=== PATIENT | male | born 2000 | race African-American/Black ===

== ENCOUNTER 2018-05-20 15:09 | Emergency (ER) | payer OTHER, SELFPAY ==
[2018-05-20] MEDS ORDERED: Dicyclomine 20 MG TAB ONE (15:32)
[2018-05-20] MEDS ORDERED: Ondansetron PF 4 MG/2 ML Vial ONE (15:33)
[2018-05-20 15:50] LABS: #Basophils 0.1 thou/uL (0.0-0.2); #Eosinphils 0.1 thou/uL (0.0-0.7); #Lymphocytes 1.5 thou/uL (1.20-3.40); #Monocytes 0.7 thou/uL (0.11-0.59); #Neutrophils 5.1 thou/uL (1.40-6.50); %Basophils 0.9 % (0.0-1.0); %Eosinophils 1.7 % (0.0-10.0); %Monocytes 9.3 % (0.0-4.0); %Neutrophils 68.1 % (31.0-61.0); Hemoglobin 14.7 g/dL (14.0-18.0); Mean Corpuscular HGB CONC 35.1 g/dL (32.0-36.0); Mean Corpuscular Hemoglobin 30.6 pg (25.0-35.0); Mean Corpuscular Volume 87.2 fL (78.0-98.0); Platelet Count 271 thou/uL (130-400); RBC Distribution Width 11.6 % (11.5-14.5); Red Blood Cell (RBC) Count 4.82 mill/uL (4.00-5.20); White Blood Cell (WBC) Count 7.6 thou/uL (4.8-10.8)
[2018-05-20 16:06] LABS: ALT (SGPT) 11 U/L (8-55); AST (SGOT) 15 U/L (5-34); Alkaline Phosphatase 68 U/L (Less than 750); Anion Gap 12 mmol/L (10-20); BUN (Urea Nitrogen) 11 mg/dL (8.9-20.6); Bilirubin, Total 0.6 mg/dL (0.2-1.2); Calc. Creatinine Clearance 0 mL/min (70-130); Calcium 9.3 mg/dL (7.8-10.44); Carbon Dioxide 26 mmol/L (22-29); Chloride 106 mmol/L (98-107); Estimated GFR-MDRD Greater than 90; Globulin 2.8 g/dL (2.4-3.5); Glucose 95 mg/dL (70-105); Lipase 9 U/L (8-78); Protein, Total 6.8 g/dL (6.0-8.3); Sodium 140 mmol/L (136-145)
--- NOTE | 2018-05-20 17:59 | CT ---
ABDOMEN AND PELVIC CT SCAN: 05/20/18 HISTORY: 18-year-old male with history of pain, periumbilical with slightly more focal right lower quadrant pa in. The lung bases are clear. The liver, gallbladder, pancreas, spleen, adrenal glands are unremarkable. No renal calculi or evidence for acute obstruction. There is some abnormal edematous changes and t hickening of the colon particularly the cecum and right colon but also extending through the transver se colon and into the left colon and down into the region of the sigmoid colon. I favor this being re lated to nonspecific acute colitis. The appendix is somewhat thickened as well measuring up to 0.7 cm in thickness without any significant focal periappendiceal fat stranding. This is not a normal appea ring appendix but I favor this being secondary to the extensive diffuse colitis rather than focal tommy endicitis although certainly clinical and laboratory correlation and followup in that regard is sugge sted. There is some minimal dilatation of several of the jejunal small bowel loops, nonspecific, poss ibly related to some ileus. IMPRESSION: Evidence for nonspecific colitis with most marked involvement being in the cecum and right colon. The re is associated abnormal thickening of the appendix without significant periappendiceal fat strandin g or fluid collection. I favor this appendix to be thickened secondary to the diffuse colitis over th e possibility that this could represent acute appendicitis. Findings were discussed with Dr. Kumar in the Emergency Room at 5:30 p.m. Minimal dilatation of some of the jejunal bowel loops nonspecific, possibly some mild ileus. No absce ss. POS: [facility]
== END 2018-05-20 18:12 | disposition home or self-care (01) ==
LOC: ERS 15:09
DX: R10.31 Right lower quadrant pain (principal); R19.7 Diarrhea, unspecified; R10.33 Periumbilical pain; F90.9 Attention-deficit hyperactivity disorder, unspecified type; F91.3 Oppositional defiant disorder; F17.210 Nicotine dependence, cigarettes, uncomplicated
CPT/HCPCS: 36415; 74177; 80053; 83690; 85025; 96361; 96374; J2405

== ENCOUNTER 2022-07-09 00:08 | Emergency (ER) | payer SELFPAY | END 2022-07-09 00:58 | LOC: ERS 00:08 | DX: T18.2XXA Foreign body in stomach, initial encounter (principal); I10 Essential (primary) hypertension; F17.210 Nicotine dependence, cigarettes, uncomplicated; W20.8XXA Other cause of strike by thrown, projected or falling object, initial encounter | CPT/HCPCS: 71045; 74018 ==